=== PATIENT | male | born 1985 | race Two or more races ===

== ENCOUNTER 2025-01-21 08:25 | Day surgery (SDC) | payer BC, SELFPAY ==
--- NOTE | 2025-01-19 06:26 | EKG_ITS ---
[facility] Test Date: 2025-01-19 Pat Name: ERICKSON ZAMBRANO Department: Room: - Gender: Male [employer]: SANJANA : 1985 Requested By: Lluvia Purvis Order Number: [id number] Reading MD: Lluvia Purvis Measurements Intervals [place] Rate: 61 P: 52 MS: 177 QRS: 79 QRSD: 80 T: 51 QT: 374 QTc: 378 Interpretive Statements SINUS RHYTHM Compared to ECG 12/13/2023 23:55:01 No significant changes /store/S0/[id number]/[id number].pdf
[2025-01-19 09:38] VITALS: BMI 35.6
[2025-01-19 10:26] LABS: Basophils # (Auto) 0.1 Thou/mm3 (0.0-0.2); Basophils % (Auto) 1 % (0-2.5); Eosinophils # (Auto) 0.2 Thou/mm3 (0.0-0.5); Eosinophils % (Auto) 3 % (0-10); Hematocrit 40.6 % (41.0-53.0); Hemoglobin 14.0 g/dL (13.5-16.0); Immature Granulocytes Auto 0.10 Thou/mm3 (0.00-0.00); Lymphocytes # (Auto) 2.1 Thou/mm3 (1.0-4.8); Lymphocytes % (Auto) 28 % (10-50); Mean Corpuscular HGB Conc 34.5 g/dl (31.0-37.0); Mean Corpuscular Hemoglobin 27.9 pg (25.0-35.0); Mean Corpuscular Volume 81 fL (80-100); Monocytes # (Auto) 0.6 Thou/mm3 (0.0-0.8); Monocytes % (Auto) 8 % (0-12); Neutrophils # (Auto) 4.4 Thou/mm3 (1.8-7.7); Neutrophils % (Auto) 59 % (37-80); Nucleated Red Blood Cell # 0.00 Thou/mm3 (0.00-0.00); Nucleated Red Blood Cell % 0 /100 WBC (0); Platelet Count 252 Thou/mm3 (140-440); RDW Standard Deviation 36.1 fL (35.1-43.9); Red Blood Count 5.01 Miln/mm3 (4.50-5.90); White Blood Count 7.4 Thou/mm3 (3.8-10.6)
[2025-01-19 10:36] LABS: Alanine Aminotransferase 24 U/L (10-49); Albumin, Serum 5.0 gm/dL (3.5-5.0); Albumin/Globulin Ratio 2.2 (1.2-2.2); Alkaline Phosphatase 60 U/L (46-116); Anion Gap 11 (7-16); Aspartate Amino Transferase 24 U/L (0-34); BUN/Creatinine Ratio 11 Ratio (12-20); Bilirubin,Total 0.5 mg/dL (0.3-1.2); Blood Urea Nitrogen 11 mg/dL (9-23); Calcium 9.9 mg/dL (8.3-10.6); Calcium (Corrected) 9.9 mg/dL (8.5-10.1); Carbon Dioxide 25.8 mMol/L (20.0-31.0); Chloride 104 mMol/L (98-107); Creatinine (Component) 1.0 mg/dL (0.6-1.3); Estimated Creatinine Clearance 122.2 mL/min (>60); Globulin 2.3 gm/dL (2.3-3.5); Glucose 104 mg/dL (74-106); Osmolality,Calculated 280 (275-295); Potassium 4.2 mMol/L (3.4-5.1); Sodium 141 mMol/L (136-145); Total Protein 7.3 gm/dL (5.7-8.2); eGFR > 60 See Note
--- NOTE | 2025-01-20 14:46 | SUR.PREOP ---
Pt notified to come in tomorrow at 0830.
[2025-01-21] VITALS (7 sets, daily range): BP systolic 134–158; BP diastolic 76–97; PULSE 69–77; RESP 17–20; TEMP 36.2–37; O2SAT 96–98; BMI 34.8
[2025-01-21] MEDS: RINGERS LACTATED 1000 ML 1,000 ML 20 ML IV (08:52)
--- NOTE | 2025-01-21 11:08 | PD.SUROPNT ---
Date of Procedure 01/21/25 Pre Op Diagnosis Multiple scalp masses Post Op Diagnosis Multiple scalp masses Procedure Excisions of 2 scalp from the frontal scalp, excision of an additional mass from occipital scalp Findings There are 2 masses on the frontal aspect of the scalp and an additional 1 on the occipital Procedure Description Patient brought into the operating room in supine position. After administration of monitored anesthesia care, patient was placed in left lateral decubitus position. His scalp was shaved and prepped and draped in standard surgical manner. After administration of local anesthesia the procedure started on patient's frontal scalp. There were 2 masses 1 measuring 2.5 cm and the other one 1.5 cm. I started by excising the 2.5 cm mass. An elliptical incision was made and dissection was deepened into soft tissue. The underlying mass was circumferentially dissected out surrounding soft tissue and excised. The wound was washed and irrigated and incision was closed with 2-0 nylon in simple interrupted suture. Similarly a 2 cm elliptical incision was made over the 1.5 cm lesion and it was excised in similar fashion. I then turned my attention to patient's occipital lesion, was measuring approximately 1.5 cm. There was excised in similar fashion. Incisions were covered with antibiotic ointment. Patient tolerated procedure well. He was breathing spontaneously and without difficulty and was transferred to postanesthesia care in stable condition. Instruments, needles and sponge counts were reported to be correct x 2. Anesthesia MAC and local Pathology / specimen Other (Scalp masses) Estimated Blood Loss 10 Condition Stable Disposition PACU Surgeon Lluvia Purvis MD Surgical Staff Operation Date: 01/21/25 10:45 <No data on this case meets the specified criteria>
--- NOTE | 2025-01-21 11:13 | SUR.PHASEII ---
1113 Patient arrived to recovery resting comfortably in [facility], awake and alert, breathing unlabored, vital signs stable, denies pain, dressing intact to head; sutures, antibiotic ointment, no bleeding noted, denies nausea, report received from Estee WINKLER and Dr. Vickers
--- NOTE | 2025-01-21 12:08 | SUR.PHASEII ---
1208 Patients meets discharge criteria from recovery, awake and alert, breathing unlabored, vital signs stable, denies pain, dressing intact; no bleeding noted, ate a jello and drinking 7up; denies nausea, able to dress himself into his clothing, discharge instructions given to patient and patients daughter, daughter signed discharge instructions. Patient given all her belongings prior to discharge, transported via wheelchair and left in a private vehicle.
== END 2025-01-21 12:08 | disposition home or self-care (01) ==
PROVIDERS: Anesthesiology; Referring Provider Surgery; Visit Provider Surgery
PROC: (CPT 11424; principal; 2025-01-21 10:30)
DX: L72.11 Pilar cyst (principal); Z01.810 Encounter for preprocedural cardiovascular examination; I10 Essential (primary) hypertension; Z79.899 Other long term (current) drug therapy
CPT/HCPCS: 11424; 36415; 80048; 80053; 85025; 93005; A4217; A4649; J0690; J2250; J2704; J3010; J7120; A9270